=== PATIENT | female | born 2000 | race Caucasian/White ===

== ENCOUNTER 2021-11-17 19:49 | Emergency (ER) | payer OTHER ==
[2021-11-17 20:42] LABS: RED BLOOD COUNT 4.75 M/UL (4.00-5.10); WHITE BLOOD COUNT 8.7 K/UL (4.5-11.0)
[2021-11-17 21:18] LABS: BUN/CREATININE RATIO 9 (0-10)
== END 2021-11-17 21:55 | disposition home or self-care (01) ==
LOC: ER1 19:49
PROVIDERS: Physician Assistant
DX: R07.89 Other chest pain (principal)
CPT/HCPCS: 71046; 80053; 82550; 82553; 84484; 84703; 85025; 93005; 99285